=== PATIENT | female | born 1960 | race Caucasian/White ===

== ENCOUNTER 2023-01-05 09:35 | Outpatient (CLI) | payer OTHER, SELFPAY ==
--- NOTE | 2023-01-05 11:00 | W.ANESCHARGE ---
Anesthesia Charges Start Date/Time Anesthesia Start Date: 01/05/23 Anesthesia Start Time: 10:25 Stop Date/Time Anesthesia Stop Date: 01/05/23 Anesthesia Stop Time: 10:56
--- NOTE | 2023-01-05 12:22 | W.ANESCHARGE ---
Anesthesia Charges Start Date/Time Anesthesia Start Date: 01/05/23 Anesthesia Start Time: 10:25 Stop Date/Time Anesthesia Stop Date: 01/05/23 Anesthesia Stop Time: 10:56
== END 2023-01-05 09:36 | disposition home or self-care (01) ==
LOC: OP CLINIC 09:40
PROVIDERS: PCP Family Medicine; Visit Provider Internal Medicine Gastroenterology
DX: Z12.11 Encounter for screening for malignant neoplasm of colon (principal); K57.30 Diverticulosis of large intestine without perforation or abscess without bleeding; Q43.8 Other specified congenital malformations of intestine
CPT/HCPCS: 00811; 00812; 45378; J2704; J3490